=== PATIENT | female | born 1950 | race Caucasian/White ===

== ENCOUNTER 2019-06-30 07:45 | Outpatient (CLI) | payer OTHER ==
[~2019-06-30 07:45] MED LIST: INDERAL LA80 MG PO; SYNTHROID50 MCG PO
== END 2019-06-30 07:53 | disposition home or self-care (01) ==
LOC: MAMO-SONO 07:45
DX: N60.11 Diffuse cystic mastopathy of right breast (principal); N60.12 Diffuse cystic mastopathy of left breast; Z12.31 Encounter for screening mammogram for malignant neoplasm of breast; Z87.898 Personal history of other specified conditions

== ENCOUNTER 2019-06-30 10:00 | Outpatient (CLI) | payer OTHER | END 2019-06-30 10:06 | disposition home or self-care (01) | LOC: NUCLEAR 10:00 | DX: M81.0 Age-related osteoporosis without current pathological fracture (principal) ==

== ENCOUNTER 2019-10-06 08:33 | Outpatient (CLI) | payer OTHER | END 2019-10-06 08:44 | disposition home or self-care (01) | LOC: RAD 08:33 → MAMO-SONO 08:45 | DX: E03.8 Other specified hypothyroidism (principal); M54.2 Cervicalgia; E04.2 Nontoxic multinodular goiter; M16.0 Bilateral primary osteoarthritis of hip ==

== ENCOUNTER 2019-10-15 12:43 | Emergency (ER) | payer OTHER ==
[~2019-10-15] VITALS: Ht 154.9 cm; Wt 74.4 kg
[2019-10-15] MEDS ORDERED: INDERAL LA160 MG (12:52)
[2019-10-15] MEDS ORDERED: VITAMIN D325 G1 (12:53)
[2019-10-15] MEDS ORDERED: DICLO GEL1 EACH (12:54)
[2019-10-15] MEDS ORDERED: BUTALBIT-ACETA1 EACH PO (17:22)
== END 2019-10-15 17:27 | disposition home or self-care (01) ==
LOC: ER 12:43
DX: R42 Dizziness and giddiness (principal)

== ENCOUNTER 2022-07-05 07:30 | Outpatient (CLI) | payer OTHER ==
[~2022-07-05 07:30] MED LIST changes: +BUTALBIT-ACETA1 EACH PO; +DICLO GEL1 EACH; +INDERAL LA160 MG; +VITAMIN D325 G1
== END 2022-07-05 07:31 | disposition home or self-care (01) ==
LOC: NUCLEAR 07:30
PROVIDERS: ATTEND Internal Medicine
DX: D16.20 Benign neoplasm of long bones of unspecified lower limb (principal); M19.90 Unspecified osteoarthritis, unspecified site; Z88.8 Allergy status to other drugs, medicaments and biological substances
CPT/HCPCS: 78306; A9503

== ENCOUNTER 2023-12-04 08:45 | Outpatient (CLI) | payer OTHER | END 2023-12-04 08:46 | disposition home or self-care (01) | LOC: NUCLEAR 08:45 | PROVIDERS: ATTEND Internal Medicine | DX: I70.223 Atherosclerosis of native arteries of extremities with rest pain, bilateral legs (principal) ==